=== PATIENT | female | born 1940 | race African-American/Black ===

== ENCOUNTER 2023-04-05 21:37 | Inpatient (IN) | payer MEDICARE, BC ==
[~2023-04-05] VITALS: Ht 162.6 cm; Wt 44.9 kg
[2023-04-05] MEDS ORDERED: ALBUTEROL (0.083%) 2.5MG/3ML NEB HHN STA (21:43)
[2023-04-05] MEDS ORDERED: IPRATROPIUM BROMIDE (0.02%) 0.5MG/2.5ML NEB HHN STA (21:43)
[2023-04-05] MEDS ORDERED: MAGNESIUM 2 G PREMIX 50 ML IV STA (21:43)
[2023-04-05] MEDS ORDERED: METHYLPREDNISOLONE SOD SUCC 125MG/2ML (ACT-O-VIAL) IV STA (21:43)
[2023-04-05 21:45] VITALS: RESP 28
[2023-04-05 22:05] VITALS: RESP 26
[2023-04-05] MEDS ORDERED: METHYLPREDNISOLONE SOD SUCC 125MG VIAL IV NR (22:15)
[2023-04-05 22:37] LABS: BASOPHILS % 1.1 % (0.0-2.0); DIFFERENTIAL COMMENT 0; EOSINOPHILS % 2.5 % (0.0-5.0); HEMATOCRIT. 40.1 % (36.0-48.0); HEMOGLOBIN. 13.7 g/dL (12.0-16.0); LYMPHOCYTES % 14.3 % (20.0-50.0); MEAN CORPUSCULAR HEMOGLOBIN 34.4 pg (28.0-32.0); MEAN CORPUSCULAR HGB CONC 34.2 g/dL (31.0-37.0); MEAN CORPUSCULAR VOLUME 100.6 fL (81.0-99.0); MEAN PLATELET VOLUME 7.3 fl (7.4-10.4); MONOCYTES % 9.3 % (2.0-8.0); NEUTROPHILS % 72.8 % (40.0-76.0); PLATELET 348 x1000/uL (130-400); RED BLOOD CELL COUNT 3.99 mill/uL (4.2-5.4); RED CELL DISTRIBUTION WIDTH 15.2 % (11.6-14.6); WHITE BLOOD COUNT 13.5 x1000/uL (4.5-11.0)
[2023-04-05 22:45] VITALS: RESP 19
[2023-04-05 22:46] LABS: CHLORIDE 91 mEq/L (98-107); INDEX HEMOLYSI 1 (1-3); INDEX ICTERIC 1 (1-4); INDEX LIPEMIC 1 (1-3); POTASSIUM 3.1 mEq/L (3.5-5.1); SODIUM 132 mEq/L (136-145)
[2023-04-05 22:48] LABS: INR 1.1; PROTHROMBIN TIME 11.5 sec (9.6-11.0)
[2023-04-05 22:57] LABS: ALANINE AMINOTRANSFERASE 13 IU/L (13-61); ALBUMIN 3.6 g/dL (3.4-5.0); ASPARTATE AMINOTRANSFERASE 18 IU/L (15-37); BILIRUBIN TOTAL 0.9 mg/dL (0.1-1.0); CALCIUM 8.8 mg/dL (8.5-10.1); CARBON DIOXIDE 29 mEq/L (21-32); CREATININE 0.5 mg/dL (0.6-1.3); GLUCOSE 135 mg/dL (70-105); PROTEIN TOTAL 7.3 g/dL (6.0-8.3); TROPONIN I HIGH SENSITIVITY 21 ng/L (<54); UREA NITROGEN BLOOD 9 mg/dL (7-21)
[2023-04-05] MEDS ORDERED: KCL 20MEQ/100ML PREMIX 100 ML IV ONE (23:00)
[2023-04-05 23:13] LABS: NT PRO B-TYPE NATRIURETIC PEP 185 pg/mL (5-125)
[2023-04-06] MEDS ORDERED: IPRATROPIUM/ALBUTEROL 0.5-3(2.5)MG/3ML NEB HHN PRN (10:30)
[2023-04-06 12:38] VITALS: BP 140/76; PULSE 89; RESP 22; TEMP 97.7
[2023-04-06 12:59] VITALS: BP 140/76; PULSE 89; RESP 22; TEMP 97.7
[2023-04-06] MEDS ORDERED: AMLO10TA80 PO (14:37)
[2023-04-06] MEDS ORDERED: CARV12.545 PO (14:37)
[2023-04-06] MEDS ORDERED: FLUT1BLS3 IH (14:37)
[2023-04-06] MEDS ORDERED: HYDR-4135 PO (14:37)
[2023-04-06] MEDS ORDERED: POTA-204 PO (14:37)
[2023-04-06] MEDS ORDERED: FOLI-43 PO ×2 (14:37→17:49)
[2023-04-06] MEDS ORDERED: THIA100T75 (14:37)
[2023-04-06] MEDS ORDERED: ATOR40TA70 PO (14:38)
[2023-04-06] MEDS ORDERED: VALS160T28 PO ×2 (14:38→17:50)
[2023-04-06] MEDS ORDERED: ASPI-1406 PO (14:39)
[2023-04-06] MEDS: IPRATROPIUM/ALBUTEROL 0.5-3(2.5)MG/3ML NEB HHN SCH ×2 (14:56→21:24)
[2023-04-06 15:05] VITALS: PULSE 91; RESP 20; O2SAT 96
[2023-04-06 16:00] VITALS: BP 112/63; PULSE 69; RESP 18; TEMP 97.7
[2023-04-06] MEDS ORDERED: FURO20TA4 PO (17:49)
[2023-04-06] MEDS ORDERED: THIA100T75 PO (17:51)
[2023-04-06] MEDS: THIAMINE HCL 100MG TABLET PO SCH (19:00)
[2023-04-06] MEDS: FOLIC ACID 1MG TABLET PO SCH (19:00)
[2023-04-06] MEDS: POTASSIUM CHLORIDE 20MEQ TABLET SR PO SCH (19:00)
[2023-04-06] MEDS: ASPIRIN 81MG EC TABLET PO SCH (19:01)
[2023-04-06 20:00] VITALS: BP 109/70; PULSE 90; RESP 19; TEMP 98.2
[2023-04-06] MEDS: BUDESONIDE 0.5MG/2ML NEB HHN SCH (21:24)
[2023-04-06 21:25] VITALS: PULSE 71; RESP 20
[2023-04-06] MEDS: ATORVASTATIN CALCIUM 40MG TABLET PO SCH (21:41)
[2023-04-06] MEDS: SODIUM CHLORIDE 0.9% 1,000 ML IV SCH (21:42)
[2023-04-07] VITALS (11 sets, daily range): BP systolic 102–126; BP diastolic 53–66; PULSE 60–88; RESP 16–20; TEMP 97.1–98.3; O2SAT 96
[2023-04-07] MEDS: IPRATROPIUM/ALBUTEROL 0.5-3(2.5)MG/3ML NEB HHN SCH ×4 (01:00→21:10)
[2023-04-07] MEDS ORDERED: ZOLPIDEM TARTRATE 5MG TABLET PO PRN (02:15)
[2023-04-07] MEDS: GUAIFENESIN/CODEINE 200-20MG/10ML UDC PO PRN ×2 (02:35→08:39)
[2023-04-07] MEDS: HYDRALAZINE HCL 25MG TABLET PO SCH ×2 (06:20→17:22)
[2023-04-07] MEDS: THIAMINE HCL 100MG TABLET PO SCH (08:39)
[2023-04-07] MEDS: ASPIRIN 81MG EC TABLET PO SCH (08:39)
[2023-04-07] MEDS: FOLIC ACID 1MG TABLET PO SCH (08:39)
[2023-04-07] MEDS: POTASSIUM CHLORIDE 20MEQ TABLET SR PO SCH ×2 (08:40→15:19)
[2023-04-07] MEDS: CARVEDILOL 12.5MG TABLET PO SCH (08:40)
[2023-04-07] MEDS: AMLODIPINE 10MG TABLET PO SCH (08:40)
[2023-04-07] MEDS: LOSARTAN POTASSIUM 50 MG TABLET PO SCH (08:40)
[2023-04-07] MEDS: BUDESONIDE 0.5MG/2ML NEB HHN SCH ×2 (08:59→21:10)
[2023-04-07] MEDS: SODIUM CHLORIDE 0.9% 1,000 ML IV SCH (13:17)
[2023-04-07] MEDS: PANTOT AC/MIN OIL/PET HY-PHL OINT (AQUAPHOR) TOP SCH ×2 (13:17→15:13)
[2023-04-07] MEDS: BENZONATATE 100MG CAPSULE PO SCH ×2 (15:19→23:11)
[2023-04-07] MEDS ORDERED: GUAIFENESIN 200MG/10ML SUGAR FREE UDC PO PRN (19:15)
[2023-04-07] MEDS: ATORVASTATIN CALCIUM 40MG TABLET PO SCH (20:29)
[2023-04-07] MEDS: ENOXAPARIN 30MG/0.3ML SYR SUBCUT SCH (20:29)
[2023-04-07 21:29] LABS: BASOPHILS % 0.6 % (0.0-2.0); DIFFERENTIAL COMMENT 0; EOSINOPHILS % 1.9 % (0.0-5.0); HEMATOCRIT. 37.9 % (36.0-48.0); HEMOGLOBIN. 12.3 g/dL (12.0-16.0); LYMPHOCYTES % 15.4 % (20.0-50.0); MEAN CORPUSCULAR HEMOGLOBIN 33.4 pg (28.0-32.0); MEAN CORPUSCULAR HGB CONC 32.6 g/dL (31.0-37.0); MEAN CORPUSCULAR VOLUME 102.4 fL (81.0-99.0); MEAN PLATELET VOLUME 7.6 fl (7.4-10.4); MONOCYTES % 12.6 % (2.0-8.0); NEUTROPHILS % 69.5 % (40.0-76.0); PLATELET 358 x1000/uL (130-400); RED CELL DISTRIBUTION WIDTH 14.9 % (11.6-14.6); WHITE BLOOD COUNT 9.3 x1000/uL (4.5-11.0)
[2023-04-07 21:43] LABS: CHLORIDE 96 mEq/L (98-107); INDEX HEMOLYSI 1 (1-3); INDEX ICTERIC 1 (1-4); INDEX LIPEMIC 1 (1-3); SODIUM 133 mEq/L (136-145)
[2023-04-07 21:48] LABS: CARBON DIOXIDE 28 mEq/L (21-32); CREATININE 0.5 mg/dL (0.6-1.3); GLUCOSE 91 mg/dL (70-105); UREA NITROGEN BLOOD 12 mg/dL (7-21)
[2023-04-08] VITALS (9 sets, daily range): BP systolic 104–145; BP diastolic 58–78; PULSE 63–90; RESP 17–20; TEMP 97.5–98.2; O2SAT 95
[2023-04-08] MEDS: IPRATROPIUM/ALBUTEROL 0.5-3(2.5)MG/3ML NEB HHN SCH ×4 (02:32→20:01)
[2023-04-08] MEDS: HYDRALAZINE HCL 25MG TABLET PO SCH ×2 (06:00→17:10)
[2023-04-08 07:20] LABS: BASOPHILS % 0.5 % (0.0-2.0); EOSINOPHILS % 4.5 % (0.0-5.0); HEMATOCRIT. 33.2 % (36.0-48.0); HEMOGLOBIN. 11.5 g/dL (12.0-16.0); LYMPHOCYTES % 20.5 % (20.0-50.0); MEAN CORPUSCULAR HEMOGLOBIN 34.8 pg (28.0-32.0); MEAN CORPUSCULAR HGB CONC 34.8 g/dL (31.0-37.0); MEAN CORPUSCULAR VOLUME 99.9 fL (81.0-99.0); NEUTROPHILS % 60.5 % (40.0-76.0); PLATELET 328 x1000/uL (130-400); RED BLOOD CELL COUNT 3.32 mill/uL (4.2-5.4); RED CELL DISTRIBUTION WIDTH 14.8 % (11.6-14.6); WHITE BLOOD COUNT 6.7 x1000/uL (4.5-11.0)
[2023-04-08 08:12] LABS: CALCIUM 7.5 mg/dL (8.5-10.1); CARBON DIOXIDE 24 mEq/L (21-32); CHLORIDE 98 mEq/L (98-107); GLUCOSE 81 mg/dL (70-105); INDEX HEMOLYSI 1 (1-3); INDEX ICTERIC 1 (1-4); INDEX LIPEMIC 1 (1-3); POTASSIUM 3.8 mEq/L (3.5-5.1); SODIUM 131 mEq/L (136-145); UREA NITROGEN BLOOD 9 mg/dL (7-21)
[2023-04-08 08:15] LABS: CREATININE 0.4 mg/dL (0.6-1.3)
[2023-04-08] MEDS: AMLODIPINE 10MG TABLET PO SCH (08:33)
[2023-04-08] MEDS: POTASSIUM CHLORIDE 20MEQ TABLET SR PO SCH ×2 (08:33→16:54)
[2023-04-08] MEDS: LOSARTAN POTASSIUM 50 MG TABLET PO SCH (08:33)
[2023-04-08] MEDS: ASPIRIN 81MG EC TABLET PO SCH (08:33)
[2023-04-08] MEDS: THIAMINE HCL 100MG TABLET PO SCH (08:33)
[2023-04-08] MEDS: BENZONATATE 100MG CAPSULE PO SCH ×2 (08:33→16:54)
[2023-04-08] MEDS: FOLIC ACID 1MG TABLET PO SCH (08:34)
[2023-04-08] MEDS: PANTOT AC/MIN OIL/PET HY-PHL OINT (AQUAPHOR) TOP SCH ×3 (08:34→16:55)
[2023-04-08] MEDS: CARVEDILOL 12.5MG TABLET PO SCH (08:34)
[2023-04-08] MEDS: SODIUM CHLORIDE 0.9% 1,000 ML IV SCH (08:35)
[2023-04-08] MEDS: BUDESONIDE 0.5MG/2ML NEB HHN SCH ×2 (10:02→20:01)
[2023-04-08] MEDS: ATORVASTATIN CALCIUM 40MG TABLET PO SCH (21:00)
[2023-04-08] MEDS: ENOXAPARIN 30MG/0.3ML SYR SUBCUT SCH (21:00)
[2023-04-09] VITALS (8 sets, daily range): BP systolic 110–141; BP diastolic 55–74; PULSE 68–88; RESP 17–24; TEMP 96.7–98.1; O2SAT 99
[2023-04-09] MEDS: IPRATROPIUM/ALBUTEROL 0.5-3(2.5)MG/3ML NEB HHN SCH ×3 (02:03→21:10)
[2023-04-09] MEDS: SODIUM CHLORIDE 0.9% 1,000 ML IV SCH (06:00)
[2023-04-09] MEDS: HYDRALAZINE HCL 25MG TABLET PO SCH ×2 (06:00→18:15)
[2023-04-09] MEDS: FOLIC ACID 1MG TABLET PO SCH (08:26)
[2023-04-09] MEDS: AMLODIPINE 10MG TABLET PO SCH (08:26)
[2023-04-09] MEDS: POTASSIUM CHLORIDE 20MEQ TABLET SR PO SCH ×2 (08:26→16:50)
[2023-04-09] MEDS: BENZONATATE 100MG CAPSULE PO SCH ×3 (08:26→16:50)
[2023-04-09] MEDS: THIAMINE HCL 100MG TABLET PO SCH (08:26)
[2023-04-09] MEDS: CARVEDILOL 12.5MG TABLET PO SCH (08:27)
[2023-04-09] MEDS: LOSARTAN POTASSIUM 50 MG TABLET PO SCH (08:27)
[2023-04-09] MEDS: ASPIRIN 81MG EC TABLET PO SCH (08:27)
[2023-04-09] MEDS: PANTOT AC/MIN OIL/PET HY-PHL OINT (AQUAPHOR) TOP SCH ×3 (08:28→16:56)
[2023-04-09 13:00] LABS: VITAMIN B12 SERUM 425 pg/mL (211-911)
[2023-04-09 13:54] LABS: FOLIC ACID (FOLATE) SERUM > 20.00 ng/mL (>5.38)
[2023-04-09] MEDS: BUDESONIDE 0.5MG/2ML NEB HHN SCH (14:39)
[2023-04-09] MEDS ORDERED: NALOXONE HCL 0.4MG/ML VIAL IV PRN (20:30)
[2023-04-09] MEDS: ENOXAPARIN 30MG/0.3ML SYR SUBCUT SCH (20:45)
[2023-04-09] MEDS: ATORVASTATIN CALCIUM 40MG TABLET PO SCH (20:46)
[2023-04-09] MEDS: HYDROCODONE/ACETAMINOPHEN 5/325MG TABLET PO PRN (20:47)
[2023-04-10] VITALS (8 sets, daily range): BP systolic 101–158; BP diastolic 61–75; PULSE 63–77; RESP 18–20; TEMP 97–97.3; O2SAT 99
[2023-04-10] MEDS: BENZONATATE 100MG CAPSULE PO SCH ×3 (00:39→17:51)
[2023-04-10] MEDS: HYDROCODONE/ACETAMINOPHEN 5/325MG TABLET PO PRN ×2 (00:40→05:48)
[2023-04-10] MEDS: IPRATROPIUM/ALBUTEROL 0.5-3(2.5)MG/3ML NEB HHN SCH ×3 (01:34→16:30)
[2023-04-10] MEDS: SODIUM CHLORIDE 0.9% 1,000 ML IV SCH (02:00)
[2023-04-10] MEDS: HYDRALAZINE HCL 25MG TABLET PO SCH ×2 (05:48→17:48)
[2023-04-10] MEDS: AMLODIPINE 10MG TABLET PO SCH (08:28)
[2023-04-10] MEDS: LOSARTAN POTASSIUM 50 MG TABLET PO SCH (08:28)
[2023-04-10] MEDS: POTASSIUM CHLORIDE 20MEQ TABLET SR PO SCH ×2 (08:28→17:51)
[2023-04-10] MEDS: ASPIRIN 81MG EC TABLET PO SCH (08:28)
[2023-04-10] MEDS: THIAMINE HCL 100MG TABLET PO SCH (08:28)
[2023-04-10] MEDS: PANTOT AC/MIN OIL/PET HY-PHL OINT (AQUAPHOR) TOP SCH ×3 (08:29→17:00)
[2023-04-10] MEDS: CARVEDILOL 12.5MG TABLET PO SCH (08:29)
[2023-04-10] MEDS: FOLIC ACID 1MG TABLET PO SCH (08:29)
[2023-04-10] MEDS: ALPRAZOLAM 0.25 MG TABLET PO PRN ×2 (09:39→14:44)
[2023-04-10] MEDS ORDERED: CYANOCOBALAMIN 1000MCG/ML VIAL IM SCH (12:30)
== END 2023-04-10 20:12 | DRG 189 ==
LOC: ER 21:37 → EDBD 23:40 → MICUSO 23:40 → 8WST 04-06 12:25
PROVIDERS: ADMIT Internal Medicine; ATTEND Internal Medicine
PROC: 5A09357 Assistance with Respiratory Ventilation, Less than 24 Consecutive Hours, Continuous Positive Airway Pressure (ICD-10-PCS; principal; 2023-04-05)
DX: J96.01 Acute respiratory failure with hypoxia (principal); J44.1 Chronic obstructive pulmonary disease with (acute) exacerbation; E87.1 Hypo-osmolality and hyponatremia; F17.210 Nicotine dependence, cigarettes, uncomplicated; I10 Essential (primary) hypertension; D72.829 Elevated white blood cell count, unspecified; L85.9 Epidermal thickening, unspecified; F10.20 Alcohol dependence, uncomplicated; L40.9 Psoriasis, unspecified; M79.671 Pain in right foot; M79.672 Pain in left foot; L84 Corns and callosities; G62.9 Polyneuropathy, unspecified; R26.9 Unspecified abnormalities of gait and mobility; E87.6 Hypokalemia; D64.9 Anemia, unspecified; R10.9 Unspecified abdominal pain; K57.30 Diverticulosis of large intestine without perforation or abscess without bleeding; Z99.81 Dependence on supplemental oxygen; Z91.199 Patient's noncompliance with other medical treatment and regimen due to unspecified reason
CPT/HCPCS: 36415; 71045; 74176; 80048; 80053; 82306; 82607; 82746; 83880; 84443; 84484; 85025; 94640; 94644; 94660; 94664; 97116; 97162; 97166; 97530; 99291; C1893; J1650; J2930; J3420; J3475; J3480; J7030; J7626

== ENCOUNTER 2023-04-10 20:10 | Inpatient (IN) | payer MEDICARE, BC ==
[~2023-04-10] VITALS: Ht 162.6 cm; Wt 44.9 kg
[2023-04-10 20:10] VITALS: BP 106/53; PULSE 72; RESP 18; TEMP 97.6
[~2023-04-10 20:10] MED LIST: ASPI-1406 PO; ATOR40TA70 PO; CARV12.545 PO; FLUT1BLS3 IH; FOLI-43 PO; FURO20TA4 PO; HYDR-4135 PO; POTA-204 PO; THIA100T75 PO; VALS160T28 PO
[2023-04-11] MEDS ORDERED: HYDROCODONE/ACETAMINOPHEN 5/325MG TABLET PO PRN
[2023-04-11] MEDS ORDERED: NALOXONE HCL 0.4 MG/ML 1ML VIAL IV PRN
[2023-04-11 02:11] VITALS: PULSE 83; RESP 16
[2023-04-11] MEDS: IPRATROPIUM/ALBUTEROL 0.5-3(2.5)MG/3ML NEB HHN SCH ×4 (02:11→20:00)
[2023-04-11 06:12] LABS: HEMATOCRIT. 35.8 % (36.0-48.0); HEMOGLOBIN. 12.1 g/dL (12.0-16.0); MEAN CORPUSCULAR HEMOGLOBIN 34.2 pg (28.0-32.0); MEAN CORPUSCULAR HGB CONC 33.9 g/dL (31.0-37.0); RED BLOOD CELL COUNT 3.54 mill/uL (4.2-5.4); RED CELL DISTRIBUTION WIDTH 14.9 % (11.6-14.6)
[2023-04-11 06:13] LABS: CHLORIDE 95 mEq/L (98-107); INDEX HEMOLYSI 2 (1-3); INDEX ICTERIC 1 (1-4); INDEX LIPEMIC 1 (1-3); POTASSIUM 4.6 mEq/L (3.5-5.1); SODIUM 125 mEq/L (136-145)
[2023-04-11 06:21] LABS: ALANINE AMINOTRANSFERASE 16 IU/L (13-61); ASPARTATE AMINOTRANSFERASE 21 IU/L (15-37); BILIRUBIN TOTAL 0.3 mg/dL (0.1-1.0); CALCIUM 8.8 mg/dL (8.5-10.1); CARBON DIOXIDE 25 mEq/L (21-32); CREATININE 0.5 mg/dL (0.6-1.3); GLUCOSE 95 mg/dL (70-105); PREALBUMIN 22.9 mg/dL (20.0-40.0); UREA NITROGEN BLOOD 13 mg/dL (7-21)
[2023-04-11 06:30] LABS: DIFFERENTIAL COMMENT 1
[2023-04-11] MEDS: BENZONATATE 100MG CAPSULE PO SCH ×3 (07:08→20:28)
[2023-04-11 08:00] VITALS: BP 119/64; PULSE 72; RESP 18; TEMP 97
[2023-04-11] MEDS: ENOXAPARIN 30MG/0.3ML SYR SUBCUT SCH (08:36)
[2023-04-11] MEDS: AMLODIPINE 10MG TABLET PO SCH (08:37)
[2023-04-11] MEDS: CYANOCOBALAMIN 1000MCG/ML VIAL IM SCH (08:37)
[2023-04-11] MEDS: LOSARTAN POTASSIUM 50 MG TABLET PO SCH (08:38)
[2023-04-11] MEDS: POTASSIUM CHLORIDE 20MEQ TABLET SR PO SCH ×2 (08:38→17:40)
[2023-04-11] MEDS: THIAMINE HCL 100MG TABLET PO SCH (08:38)
[2023-04-11] MEDS: HYDRALAZINE HCL 25MG TABLET PO SCH ×2 (08:39→21:00)
[2023-04-11] MEDS: CARVEDILOL 12.5MG TABLET PO SCH (08:39)
[2023-04-11] MEDS: ASPIRIN 81MG EC TABLET PO SCH (08:39)
[2023-04-11] MEDS: FOLIC ACID 1MG TABLET PO SCH (08:39)
[2023-04-11] MEDS ORDERED: PANTOT AC/MIN OIL/PET HY-PHL OINT (AQUAPHOR) TOP SCH (09:00)
[2023-04-11] MEDS: PANTOT AC/MIN OIL/PET HY-PHL OINT (AQUAPHOR) TOP SCH (09:00)
[2023-04-11 13:14] LABS: PLATELET 300 x1000/uL (130-400)
[2023-04-11 13:18] LABS: PLATELET ESTIMATE NORMAL
[2023-04-11 14:23] VITALS: PULSE 71; RESP 16; O2SAT 100
[2023-04-11] MEDS: ERGOCALCIFEROL 50000UNITS CAPSULE PO SCH (14:23)
[2023-04-11 19:31] LABS: CLARITY URINE CLEAR (CLEAR); COLOR URINE YELLOW (YELLOW); GLUCOSE URINE NEGATIVE (NEGATIVE); KETONES URINE NEGATIVE (NEGATIVE); LEUKOCYTE ESTERASE URINE NEGATIVE (NEGATIVE); NITRITE URINE NEGATIVE (NEGATIVE); OCCULT BLOOD URINE NEGATIVE (NEGATIVE); PH URINE 6.5 (4.5-8.0); PROTEIN URINE NEGATIVE (NEGATIVE); SPECIFIC GRAVITY URINE 1.013 (1.005-1.030)
[2023-04-11] MEDS: BUDESONIDE 0.5MG/2ML NEB HHN SCH (19:57)
[2023-04-11 20:00] VITALS: BP 114/61; PULSE 77; PULSE 78; RESP 15; RESP 16; TEMP 97.5; O2SAT 99
[2023-04-11] MEDS: SULFAMETHOXAZOLE/TRIMETHOPRIM 800/160MG TABLET PO SCH (20:28)
[2023-04-11] MEDS: ATORVASTATIN CALCIUM 40MG TABLET PO SCH (20:28)
[2023-04-12] MEDS: BENZONATATE 100MG CAPSULE PO SCH ×3 (06:05→21:59)
[2023-04-12 08:00] VITALS: BP 145/75; PULSE 71; RESP 18; TEMP 97.4
[2023-04-12] MEDS: IPRATROPIUM/ALBUTEROL 0.5-3(2.5)MG/3ML NEB HHN SCH ×3 (08:45→20:18)
[2023-04-12] MEDS: PANTOT AC/MIN OIL/PET HY-PHL OINT (AQUAPHOR) TOP SCH (09:00)
[2023-04-12] MEDS: FOLIC ACID 1MG TABLET PO SCH (09:42)
[2023-04-12] MEDS: ASPIRIN 81MG EC TABLET PO SCH (09:42)
[2023-04-12] MEDS: POTASSIUM CHLORIDE 20MEQ TABLET SR PO SCH ×2 (09:42→17:18)
[2023-04-12] MEDS: SULFAMETHOXAZOLE/TRIMETHOPRIM 800/160MG TABLET PO SCH (09:43)
[2023-04-12] MEDS: CYANOCOBALAMIN 1000MCG/ML VIAL IM SCH (09:43)
[2023-04-12] MEDS: THIAMINE HCL 100MG TABLET PO SCH (09:43)
[2023-04-12] MEDS: LOSARTAN POTASSIUM 50 MG TABLET PO SCH (09:43)
[2023-04-12] MEDS: ENOXAPARIN 30MG/0.3ML SYR SUBCUT SCH (09:44)
[2023-04-12] MEDS: CARVEDILOL 12.5MG TABLET PO SCH (09:44)
[2023-04-12] MEDS: HYDRALAZINE HCL 25MG TABLET PO SCH ×2 (09:44→22:00)
[2023-04-12] MEDS: AMLODIPINE 10MG TABLET PO SCH (11:22)
[2023-04-12 14:38] VITALS: PULSE 62; RESP 16; O2SAT 100
[2023-04-12] MEDS: BUDESONIDE 0.5MG/2ML NEB HHN SCH ×2 (14:38→20:18)
[2023-04-12] MEDS: ALPRAZOLAM 0.25 MG TABLET PO PRN (17:19)
[2023-04-12] MEDS: NICOTINE 7MG PATCH TD SCH (17:30)
[2023-04-12 18:19] LABS: THYROID STIMULATING HORMONE 0.62 uIU/mL (0.36-3.74)
[2023-04-12 20:00] VITALS: BP 97/52; PULSE 66; RESP 20; TEMP 97.9
[2023-04-12 20:30] VITALS: PULSE 62; RESP 18; O2SAT 99
[2023-04-12] MEDS: ATORVASTATIN CALCIUM 40MG TABLET PO SCH (21:59)
[2023-04-13] MEDS: IPRATROPIUM/ALBUTEROL 0.5-3(2.5)MG/3ML NEB HHN SCH ×4 (01:18→20:41)
[2023-04-13 01:20] VITALS: PULSE 74; RESP 18; O2SAT 99
[2023-04-13] MEDS: BENZONATATE 100MG CAPSULE PO SCH ×3 (07:25→21:36)
[2023-04-13 07:31] LABS: HEMATOCRIT. 33.5 % (36.0-48.0); HEMOGLOBIN. 11.6 g/dL (12.0-16.0); MEAN CORPUSCULAR HEMOGLOBIN 34.5 pg (28.0-32.0); MEAN CORPUSCULAR HGB CONC 34.5 g/dL (31.0-37.0); MEAN PLATELET VOLUME 7.3 fl (7.4-10.4); PLATELET 362 x1000/uL (130-400); RED BLOOD CELL COUNT 3.35 mill/uL (4.2-5.4); RED CELL DISTRIBUTION WIDTH 15.1 % (11.6-14.6); WHITE BLOOD COUNT 6.7 x1000/uL (4.5-11.0)
[2023-04-13 07:34] LABS: CHLORIDE 94 mEq/L (98-107); INDEX HEMOLYSI 1 (1-3); INDEX ICTERIC 1 (1-4); INDEX LIPEMIC 1 (1-3); POTASSIUM 4.6 mEq/L (3.5-5.1); SODIUM 124 mEq/L (136-145)
[2023-04-13 07:44] LABS: CALCIUM 8.6 mg/dL (8.5-10.1); CARBON DIOXIDE 25 mEq/L (21-32); CREATININE 0.6 mg/dL (0.6-1.3); GLUCOSE 95 mg/dL (70-105); UREA NITROGEN BLOOD 11 mg/dL (7-21)
[2023-04-13 07:45] LABS: DIFFERENTIAL COMMENT 1
[2023-04-13 08:00] VITALS: BP 103/46; PULSE 78; RESP 16; TEMP 97.1
[2023-04-13 09:00] VITALS: PULSE 77; RESP 20; O2SAT 99
[2023-04-13] MEDS: AMLODIPINE 10MG TABLET PO SCH (09:00)
[2023-04-13] MEDS: PANTOT AC/MIN OIL/PET HY-PHL OINT (AQUAPHOR) TOP SCH (09:00)
[2023-04-13] MEDS: CARVEDILOL 12.5MG TABLET PO SCH (09:00)
[2023-04-13] MEDS: BUDESONIDE 0.5MG/2ML NEB HHN SCH ×2 (09:00→20:41)
[2023-04-13] MEDS: LOSARTAN POTASSIUM 50 MG TABLET PO SCH (09:00)
[2023-04-13] MEDS: HYDRALAZINE HCL 25MG TABLET PO SCH ×2 (09:00→21:36)
[2023-04-13] MEDS: ASPIRIN 81MG EC TABLET PO SCH (09:43)
[2023-04-13] MEDS: CYANOCOBALAMIN 1000MCG/ML VIAL IM SCH (09:43)
[2023-04-13] MEDS: FOLIC ACID 1MG TABLET PO SCH (09:43)
[2023-04-13] MEDS: THIAMINE HCL 100MG TABLET PO SCH (09:43)
[2023-04-13] MEDS: ENOXAPARIN 30MG/0.3ML SYR SUBCUT SCH (09:44)
[2023-04-13] MEDS: POTASSIUM CHLORIDE 20MEQ TABLET SR PO SCH (09:44)
[2023-04-13] MEDS: SODIUM CHLORIDE 0.9% 1,000 ML IV SCH (09:45)
[2023-04-13] MEDS: NICOTINE 7MG PATCH TD SCH (09:59)
[2023-04-13 13:13] LABS: PLATELET ESTIMATE NORMAL
[2023-04-13] MEDS: ALPRAZOLAM 0.25 MG TABLET PO PRN (14:35)
[2023-04-13 16:30] VITALS: PULSE 80; RESP 20
[2023-04-13 19:51] VITALS: BP 135/75; PULSE 84; RESP 17; TEMP 96.9
[2023-04-13 20:41] VITALS: PULSE 77; RESP 18
[2023-04-13] MEDS: ATORVASTATIN CALCIUM 40MG TABLET PO SCH (21:36)
[2023-04-14] MEDS: IPRATROPIUM/ALBUTEROL 0.5-3(2.5)MG/3ML NEB HHN SCH ×4 (01:45→20:28)
[2023-04-14] MEDS: BENZONATATE 100MG CAPSULE PO SCH ×3 (06:20→22:20)
[2023-04-14 06:45] LABS: HEMATOCRIT. 33.5 % (36.0-48.0); HEMOGLOBIN. 11.7 g/dL (12.0-16.0); MEAN CORPUSCULAR HEMOGLOBIN 34.9 pg (28.0-32.0); MEAN CORPUSCULAR HGB CONC 35.1 g/dL (31.0-37.0); MEAN CORPUSCULAR VOLUME 99.5 fL (81.0-99.0); MEAN PLATELET VOLUME 8.1 fl (7.4-10.4); PLATELET 397 x1000/uL (130-400); RED BLOOD CELL COUNT 3.36 mill/uL (4.2-5.4); RED CELL DISTRIBUTION WIDTH 15.1 % (11.6-14.6); WHITE BLOOD COUNT 5.9 x1000/uL (4.5-11.0)
[2023-04-14 06:54] LABS: DIFFERENTIAL COMMENT 1
[2023-04-14] MEDS: BUDESONIDE 0.5MG/2ML NEB HHN SCH ×3 (07:49→20:28)
[2023-04-14 08:00] VITALS: BP 143/72; PULSE 87; RESP 20; TEMP 96.8
[2023-04-14 08:41] LABS: CALCIUM 8.6 mg/dL (8.5-10.1); CHLORIDE 95 mEq/L (98-107); INDEX HEMOLYSI 4 (1-3); INDEX ICTERIC 1 (1-4); INDEX LIPEMIC 1 (1-3); SODIUM 123 mEq/L (136-145); UREA NITROGEN BLOOD 14 mg/dL (7-21)
[2023-04-14 08:44] LABS: POTASSIUM 6.1 mEq/L (3.5-5.1)
[2023-04-14 08:45] LABS: CARBON DIOXIDE 24 mEq/L (21-32); CREATININE 0.7 mg/dL (0.6-1.3); GLUCOSE 92 mg/dL (70-105)
[2023-04-14] MEDS ORDERED: POTASSIUM CHLORIDE 20MEQ TABLET SR PO SCH (09:00)
[2023-04-14] MEDS: PANTOT AC/MIN OIL/PET HY-PHL OINT (AQUAPHOR) TOP SCH (09:00)
[2023-04-14] MEDS: FOLIC ACID 1MG TABLET PO SCH (09:34)
[2023-04-14] MEDS: ASPIRIN 81MG EC TABLET PO SCH (09:35)
[2023-04-14] MEDS: THIAMINE HCL 100MG TABLET PO SCH (09:35)
[2023-04-14] MEDS: AMLODIPINE 10MG TABLET PO SCH (09:36)
[2023-04-14] MEDS: HYDRALAZINE HCL 25MG TABLET PO SCH ×2 (09:36→22:18)
[2023-04-14] MEDS: NICOTINE 7MG PATCH TD SCH (09:37)
[2023-04-14] MEDS: CYANOCOBALAMIN 1000MCG/ML VIAL IM SCH (09:37)
[2023-04-14] MEDS: CARVEDILOL 12.5MG TABLET PO SCH (09:37)
[2023-04-14] MEDS: ENOXAPARIN 30MG/0.3ML SYR SUBCUT SCH (09:38)
[2023-04-14] MEDS: LOSARTAN POTASSIUM 50 MG TABLET PO SCH (09:38)
[2023-04-14] MEDS: DEMECLOCYCLINE HCL 300MG TABLET PO SCH ×2 (11:00→18:04)
[2023-04-14 15:07] VITALS: PULSE 72; RESP 16; O2SAT 98
[2023-04-14 20:00] VITALS: BP 136/56; PULSE 75; RESP 17; TEMP 97.2
[2023-04-14 20:30] VITALS: PULSE 92; RESP 16
[2023-04-14] MEDS: ATORVASTATIN CALCIUM 40MG TABLET PO SCH (22:19)
[2023-04-14] MEDS: ZOLPIDEM TARTRATE 5MG TABLET PO PRN (22:20)
[2023-04-15] MEDS: IPRATROPIUM/ALBUTEROL 0.5-3(2.5)MG/3ML NEB HHN SCH ×4 (02:07→21:39)
[2023-04-15 02:08] VITALS: PULSE 88; RESP 16
[2023-04-15] MEDS ORDERED: SODIUM POLYSTYRENE SULFONATE 15 G/60 ML BOT PO NR ×2 (05:30→06:00)
[2023-04-15] MEDS: BENZONATATE 100MG CAPSULE PO SCH ×3 (06:03→22:04)
[2023-04-15 07:18] LABS: CHLORIDE 93 mEq/L (98-107); INDEX HEMOLYSI 1 (1-3); INDEX ICTERIC 1 (1-4); INDEX LIPEMIC 1 (1-3); POTASSIUM 4.6 mEq/L (3.5-5.1); SODIUM 124 mEq/L (136-145)
[2023-04-15 07:25] LABS: CALCIUM 8.5 mg/dL (8.5-10.1); CARBON DIOXIDE 25 mEq/L (21-32); CREATININE 0.6 mg/dL (0.6-1.3); GLUCOSE 97 mg/dL (70-105); UREA NITROGEN BLOOD 16 mg/dL (7-21)
[2023-04-15 07:54] VITALS: PULSE 88; RESP 20; O2SAT 95
[2023-04-15] MEDS: BUDESONIDE 0.5MG/2ML NEB HHN SCH ×2 (07:54→21:39)
[2023-04-15 08:00] VITALS: BP 128/68; PULSE 79; RESP 18; TEMP 97.9
[2023-04-15 08:17] LABS: PLATELET ESTIMATE NORMAL
[2023-04-15] MEDS: PANTOT AC/MIN OIL/PET HY-PHL OINT (AQUAPHOR) TOP SCH (09:00)
[2023-04-15] MEDS: SODIUM CHLORIDE 0.9% 1,000 ML IV SCH (09:45)
[2023-04-15] MEDS: NICOTINE 7MG PATCH TD SCH (09:58)
[2023-04-15] MEDS: THIAMINE HCL 100MG TABLET PO SCH (09:59)
[2023-04-15] MEDS: ENOXAPARIN 30MG/0.3ML SYR SUBCUT SCH (09:59)
[2023-04-15] MEDS: CARVEDILOL 12.5MG TABLET PO SCH (10:00)
[2023-04-15] MEDS: DEMECLOCYCLINE HCL 300MG TABLET PO SCH ×2 (10:00→16:56)
[2023-04-15] MEDS: ASPIRIN 81MG EC TABLET PO SCH (10:00)
[2023-04-15] MEDS: FOLIC ACID 1MG TABLET PO SCH (10:00)
[2023-04-15] MEDS: AMLODIPINE 10MG TABLET PO SCH (10:01)
[2023-04-15] MEDS: HYDRALAZINE HCL 25MG TABLET PO SCH ×2 (10:01→21:50)
[2023-04-15] MEDS: GUAIFENESIN 200MG/10ML SUGAR FREE UDC PO PRN ×2 (15:16→22:06)
[2023-04-15] MEDS ORDERED: DIPHENOXYLATE/ATROPINE 2.5/0.025MG TABLET PO PRN (15:30)
[2023-04-15 15:42] VITALS: PULSE 85; RESP 18; O2SAT 95
[2023-04-15 20:00] VITALS: BP 103/44; PULSE 77; RESP 20; TEMP 99.3
[2023-04-15 21:38] VITALS: PULSE 81; RESP 18
[2023-04-15] MEDS: ATORVASTATIN CALCIUM 40MG TABLET PO SCH (22:04)
[2023-04-15] MEDS: ZOLPIDEM TARTRATE 5MG TABLET PO PRN (22:06)
[2023-04-16] MEDS: IPRATROPIUM/ALBUTEROL 0.5-3(2.5)MG/3ML NEB HHN SCH (01:56)
[2023-04-16 06:09] LABS: HEMATOCRIT. 32.6 % (36.0-48.0); HEMOGLOBIN. 11.4 g/dL (12.0-16.0); MEAN CORPUSCULAR HEMOGLOBIN 34.6 pg (28.0-32.0); MEAN CORPUSCULAR HGB CONC 34.9 g/dL (31.0-37.0); MEAN CORPUSCULAR VOLUME 99.1 fL (81.0-99.0); MEAN PLATELET VOLUME 7.4 fl (7.4-10.4); PLATELET 395 x1000/uL (130-400); RED BLOOD CELL COUNT 3.29 mill/uL (4.2-5.4); RED CELL DISTRIBUTION WIDTH 14.4 % (11.6-14.6); WHITE BLOOD COUNT 7.2 x1000/uL (4.5-11.0)
[2023-04-16 06:18] LABS: CHLORIDE 96 mEq/L (98-107); INDEX HEMOLYSI 1 (1-3); INDEX ICTERIC 1 (1-4); INDEX LIPEMIC 1 (1-3); POTASSIUM 3.5 mEq/L (3.5-5.1); SODIUM 127 mEq/L (136-145)
[2023-04-16 06:24] LABS: CALCIUM 8.1 mg/dL (8.5-10.1); CARBON DIOXIDE 26 mEq/L (21-32); CREATININE 0.5 mg/dL (0.6-1.3); GLUCOSE 95 mg/dL (70-105); UREA NITROGEN BLOOD 12 mg/dL (7-21)
[2023-04-16] MEDS: BENZONATATE 100MG CAPSULE PO SCH ×3 (06:58→21:52)
[2023-04-16 07:37] LABS: DIFFERENTIAL COMMENT 1
[2023-04-16 08:00] VITALS: BP 108/55; PULSE 67; RESP 18; TEMP 97.1
[2023-04-16] MEDS: BUDESONIDE 0.5MG/2ML NEB HHN SCH ×2 (08:34→23:20)
[2023-04-16 08:35] VITALS: PULSE 79; RESP 18; O2SAT 99
[2023-04-16] MEDS: IPRATROPIUM/ALBUTEROL 0.5-3(2.5)MG/3ML NEB HHN PRN ×2 (08:35→23:20)
[2023-04-16] MEDS: THIAMINE HCL 100MG TABLET PO SCH (08:55)
[2023-04-16] MEDS: ASPIRIN 81MG EC TABLET PO SCH (08:55)
[2023-04-16] MEDS: DEMECLOCYCLINE HCL 300MG TABLET PO SCH ×2 (08:56→17:31)
[2023-04-16] MEDS: FOLIC ACID 1MG TABLET PO SCH (08:56)
[2023-04-16] MEDS: ENOXAPARIN 30MG/0.3ML SYR SUBCUT SCH (08:57)
[2023-04-16] MEDS: NICOTINE 7MG PATCH TD SCH (08:57)
[2023-04-16] MEDS: HYDRALAZINE HCL 25MG TABLET PO SCH ×2 (09:00→21:53)
[2023-04-16] MEDS: CARVEDILOL 12.5MG TABLET PO SCH (09:00)
[2023-04-16] MEDS: PANTOT AC/MIN OIL/PET HY-PHL OINT (AQUAPHOR) TOP SCH (09:00)
[2023-04-16] MEDS: AMLODIPINE 10MG TABLET PO SCH (09:00)
[2023-04-16] MEDS: SODIUM CHLORIDE 0.9% 1,000 ML IV SCH (09:45)
[2023-04-16 10:13] LABS: PLATELET ESTIMATE NORMAL
[2023-04-16] MEDS: GUAIFENESIN 200MG/10ML SUGAR FREE UDC PO PRN ×2 (17:33→21:55)
[2023-04-16 20:00] VITALS: BP 148/73; PULSE 80; RESP 20; TEMP 97.9
[2023-04-16] MEDS: ATORVASTATIN CALCIUM 40MG TABLET PO SCH (21:52)
[2023-04-16] MEDS: ZOLPIDEM TARTRATE 5MG TABLET PO PRN (21:55)
[2023-04-16 23:20] VITALS: PULSE 84; RESP 18
[2023-04-17] MEDS: BENZONATATE 100MG CAPSULE PO SCH ×3 (06:00→21:51)
[2023-04-17 07:31] LABS: CHLORIDE 95 mEq/L (98-107); INDEX HEMOLYSI 1 (1-3); INDEX ICTERIC 1 (1-4); INDEX LIPEMIC 1 (1-3); POTASSIUM 3.4 mEq/L (3.5-5.1); SODIUM 127 mEq/L (136-145)
[2023-04-17 07:37] LABS: CALCIUM 8.4 mg/dL (8.5-10.1); CARBON DIOXIDE 26 mEq/L (21-32); CREATININE 0.5 mg/dL (0.6-1.3); GLUCOSE 91 mg/dL (70-105); UREA NITROGEN BLOOD 11 mg/dL (7-21)
[2023-04-17 08:00] VITALS: BP 105/54; PULSE 71; RESP 19; TEMP 97.5
[2023-04-17 08:45] VITALS: PULSE 87; RESP 18
[2023-04-17] MEDS: IPRATROPIUM/ALBUTEROL 0.5-3(2.5)MG/3ML NEB HHN PRN (08:45)
[2023-04-17] MEDS: BUDESONIDE 0.5MG/2ML NEB HHN SCH ×2 (08:45→21:10)
[2023-04-17] MEDS: PANTOT AC/MIN OIL/PET HY-PHL OINT (AQUAPHOR) TOP SCH (09:00)
[2023-04-17] MEDS: THIAMINE HCL 100MG TABLET PO SCH (09:39)
[2023-04-17] MEDS: FOLIC ACID 1MG TABLET PO SCH (09:39)
[2023-04-17] MEDS: DEMECLOCYCLINE HCL 300MG TABLET PO SCH ×2 (09:39→18:00)
[2023-04-17] MEDS: NICOTINE 7MG PATCH TD SCH (09:39)
[2023-04-17] MEDS: ASPIRIN 81MG EC TABLET PO SCH (09:39)
[2023-04-17] MEDS: GUAIFENESIN 200MG/10ML SUGAR FREE UDC PO PRN (09:39)
[2023-04-17] MEDS: AMLODIPINE 10MG TABLET PO SCH (09:40)
[2023-04-17] MEDS: HYDRALAZINE HCL 25MG TABLET PO SCH ×2 (09:41→21:00)
[2023-04-17] MEDS: CARVEDILOL 12.5MG TABLET PO SCH (09:41)
[2023-04-17] MEDS: ENOXAPARIN 30MG/0.3ML SYR SUBCUT SCH (09:42)
[2023-04-17] MEDS ORDERED: POTASSIUM CHLORIDE 20MEQ TABLET SR PO NR (15:00)
[2023-04-17 20:00] VITALS: BP 118/69; PULSE 78; RESP 20; TEMP 97.7
[2023-04-17] MEDS ORDERED: ALPRAZOLAM 0.25 MG TABLET PO PRN (20:45)
[2023-04-17] MEDS ORDERED: HYDROCODONE/ACETAMINOPHEN 5/325MG TABLET PO PRN (20:45)
[2023-04-17 21:00] VITALS: PULSE 74; RESP 18; O2SAT 99
[2023-04-17] MEDS ORDERED: NALOXONE HCL 0.4MG/ML VIAL IV PRN (21:15)
[2023-04-17] MEDS: ATORVASTATIN CALCIUM 40MG TABLET PO SCH (21:51)
[2023-04-18] MEDS: GUAIFENESIN 200MG/10ML SUGAR FREE UDC PO PRN ×2 (04:48→09:13)
[2023-04-18] MEDS: BENZONATATE 100MG CAPSULE PO SCH ×3 (06:00→21:10)
[2023-04-18 07:31] LABS: CHLORIDE 94 mEq/L (98-107); INDEX HEMOLYSI 1 (1-3); INDEX ICTERIC 1 (1-4); INDEX LIPEMIC 1 (1-3); POTASSIUM 3.8 mEq/L (3.5-5.1); SODIUM 128 mEq/L (136-145)
[2023-04-18 07:42] LABS: CARBON DIOXIDE 27 mEq/L (21-32); CREATININE 0.5 mg/dL (0.6-1.3); GLUCOSE 90 mg/dL (70-105); HAPTOGLOBIN 79 mg/dL (30-200); LACTATE DEHYDROGENASE 219 IU/L (100-240); PHOSPHORUS 3.5 mg/dL (2.5-4.9); UREA NITROGEN BLOOD 8 mg/dL (7-21)
[2023-04-18 08:00] VITALS: BP 138/89; PULSE 81; RESP 17; TEMP 97.1
[2023-04-18] MEDS: BUDESONIDE 0.5MG/2ML NEB HHN SCH ×2 (08:06→21:35)
[2023-04-18 08:07] VITALS: PULSE 72; RESP 16; O2SAT 98
[2023-04-18] MEDS: PANTOT AC/MIN OIL/PET HY-PHL OINT (AQUAPHOR) TOP SCH (09:00)
[2023-04-18] MEDS: ERGOCALCIFEROL 50000UNITS CAPSULE PO SCH (09:11)
[2023-04-18] MEDS: FOLIC ACID 1MG TABLET PO SCH (09:11)
[2023-04-18] MEDS: THIAMINE HCL 100MG TABLET PO SCH (09:11)
[2023-04-18] MEDS: DEMECLOCYCLINE HCL 300MG TABLET PO SCH ×2 (09:11→18:05)
[2023-04-18] MEDS: ASPIRIN 81MG EC TABLET PO SCH (09:11)
[2023-04-18] MEDS: CYANOCOBALAMIN 1000MCG TABLET PO SCH (09:11)
[2023-04-18] MEDS: AMLODIPINE 10MG TABLET PO SCH (09:12)
[2023-04-18] MEDS: HYDRALAZINE HCL 25MG TABLET PO SCH ×2 (09:12→21:10)
[2023-04-18] MEDS: NICOTINE 7MG PATCH TD SCH (09:12)
[2023-04-18] MEDS: CARVEDILOL 12.5MG TABLET PO SCH (09:12)
[2023-04-18] MEDS: ENOXAPARIN 30MG/0.3ML SYR SUBCUT SCH (09:13)
[2023-04-18] MEDS: MAGNESIUM GLUCONATE 500MG TABLET PO SCH (09:16)
[2023-04-18] MEDS ORDERED: LACTULOSE 20G/30ML UDC PO SCH (11:30)
[2023-04-18 20:00] VITALS: BP 120/68; PULSE 78; RESP 18; TEMP 97
[2023-04-18] MEDS: ATORVASTATIN CALCIUM 40MG TABLET PO SCH (21:10)
[2023-04-18 21:36] VITALS: PULSE 75; RESP 18
[2023-04-19] MEDS: ZOLPIDEM TARTRATE 5MG TABLET PO PRN ×2 (00:25→22:10)
[2023-04-19 06:17] LABS: HEMATOCRIT. 31.2 % (36.0-48.0); MEAN CORPUSCULAR HEMOGLOBIN 34.8 pg (28.0-32.0); MEAN CORPUSCULAR HGB CONC 35.1 g/dL (31.0-37.0); MEAN PLATELET VOLUME 7.2 fl (7.4-10.4); PLATELET 421 x1000/uL (130-400); RED BLOOD CELL COUNT 3.15 mill/uL (4.2-5.4); RED CELL DISTRIBUTION WIDTH 14.5 % (11.6-14.6); WHITE BLOOD COUNT 7.1 x1000/uL (4.5-11.0)
[2023-04-19 06:25] LABS: CALCIUM 8.3 mg/dL (8.5-10.1); CHLORIDE 96 mEq/L (98-107); INDEX HEMOLYSI 1 (1-3); INDEX ICTERIC 1 (1-4); INDEX LIPEMIC 1 (1-3); POTASSIUM 3.9 mEq/L (3.5-5.1); SODIUM 128 mEq/L (136-145)
[2023-04-19 06:30] LABS: CARBON DIOXIDE 25 mEq/L (21-32); CREATININE 0.5 mg/dL (0.6-1.3); GLUCOSE 89 mg/dL (70-105); UREA NITROGEN BLOOD 10 mg/dL (7-21)
[2023-04-19 06:40] LABS: DIFFERENTIAL COMMENT 1
[2023-04-19] MEDS: BENZONATATE 100MG CAPSULE PO SCH ×3 (07:01→21:58)
[2023-04-19 08:00] VITALS: BP 124/66; PULSE 83; RESP 18; TEMP 97.5
[2023-04-19 08:49] LABS: MONOTEST NEGATIVE (NEGATIVE)
[2023-04-19] MEDS: PANTOT AC/MIN OIL/PET HY-PHL OINT (AQUAPHOR) TOP SCH (09:00)
[2023-04-19 09:25] LABS: ERYTHROCYTE SEDIMENTATION RATE 14 mm/hr (0-42)
[2023-04-19] MEDS: THIAMINE HCL 100MG TABLET PO SCH (09:28)
[2023-04-19] MEDS: MAGNESIUM GLUCONATE 500MG TABLET PO SCH (09:28)
[2023-04-19] MEDS: NICOTINE 7MG PATCH TD SCH (09:28)
[2023-04-19] MEDS: CYANOCOBALAMIN 1000MCG TABLET PO SCH (09:28)
[2023-04-19] MEDS: FOLIC ACID 1MG TABLET PO SCH (09:28)
[2023-04-19] MEDS: DEMECLOCYCLINE HCL 300MG TABLET PO SCH ×2 (09:28→18:09)
[2023-04-19] MEDS: ASPIRIN 81MG EC TABLET PO SCH (09:28)
[2023-04-19] MEDS: HYDRALAZINE HCL 25MG TABLET PO SCH ×2 (09:29→21:00)
[2023-04-19] MEDS: ENOXAPARIN 30MG/0.3ML SYR SUBCUT SCH (09:30)
[2023-04-19] MEDS: CARVEDILOL 12.5MG TABLET PO SCH (09:30)
[2023-04-19] MEDS: AMLODIPINE 10MG TABLET PO SCH (09:30)
[2023-04-19 17:15] LABS: PLATELET ESTIMATE INCREASED
[2023-04-19] MEDS: IPRATROPIUM/ALBUTEROL 0.5-3(2.5)MG/3ML NEB HHN PRN (17:33)
[2023-04-19 17:43] VITALS: PULSE 82; RESP 16; O2SAT 98
[2023-04-19 20:27] VITALS: BP 96/40; PULSE 79; RESP 17; TEMP 97.2
[2023-04-19 20:37] VITALS: PULSE 79; RESP 18
[2023-04-19] MEDS: BUDESONIDE 0.5MG/2ML NEB HHN SCH (20:37)
[2023-04-19] MEDS: ATORVASTATIN CALCIUM 40MG TABLET PO SCH (21:58)
[2023-04-20] MEDS: BENZONATATE 100MG CAPSULE PO SCH (06:04)
[2023-04-20] MEDS: BUDESONIDE 0.5MG/2ML NEB HHN SCH (07:58)
[2023-04-20] MEDS: IPRATROPIUM/ALBUTEROL 0.5-3(2.5)MG/3ML NEB HHN PRN (07:59)
[2023-04-20 08:00] VITALS: BP 94/40; PULSE 70; RESP 17; TEMP 97.5
[2023-04-20 08:15] VITALS: PULSE 76; RESP 18; O2SAT 98
[2023-04-20] MEDS: PANTOT AC/MIN OIL/PET HY-PHL OINT (AQUAPHOR) TOP SCH (09:00)
[2023-04-20] MEDS: AMLODIPINE 10MG TABLET PO SCH (09:00)
[2023-04-20] MEDS: CARVEDILOL 12.5MG TABLET PO SCH (09:00)
[2023-04-20] MEDS: HYDRALAZINE HCL 25MG TABLET PO SCH (09:00)
[2023-04-20 09:06] LABS: EBV VIRAL CAPSID AB IGM <36.0 U/mL (0.0-35.9)
[2023-04-20] MEDS: ASPIRIN 81MG EC TABLET PO SCH (09:36)
[2023-04-20] MEDS: FOLIC ACID 1MG TABLET PO SCH (09:36)
[2023-04-20] MEDS: NICOTINE 7MG PATCH TD SCH (09:37)
[2023-04-20] MEDS: CYANOCOBALAMIN 1000MCG TABLET PO SCH (09:37)
[2023-04-20] MEDS: THIAMINE HCL 100MG TABLET PO SCH (09:37)
[2023-04-20] MEDS: MAGNESIUM GLUCONATE 500MG TABLET PO SCH (09:37)
[2023-04-20] MEDS: ENOXAPARIN 30MG/0.3ML SYR SUBCUT SCH (09:42)
[2023-04-20] MEDS ORDERED: ALBU6.7H15 INH (10:30)
[2023-04-20] MEDS ORDERED: AMLO10TA80 PO (10:30)
[2023-04-20] MEDS ORDERED: BUDE6HFA INH (10:30)
[2023-04-20] MEDS ORDERED: LIP40 PO (10:30)
[2023-04-20] MEDS ORDERED: THIA100T72 PO (10:30)
[2023-04-20] MEDS ORDERED: COR12 PO (10:30)
[2023-04-20] MEDS ORDERED: HYDR-4134 PO (10:30)
[2023-04-20] MEDS ORDERED: HYDR-4001 PO (10:30)
[2023-04-20] MEDS ORDERED: ASPI-1406 PO (10:30)
[2023-04-20 11:18] VITALS: BP 108/52; PULSE 82; TEMP 97.5; O2SAT 99
[2023-04-20 11:21] VITALS: BP 108/52; PULSE 82; TEMP 97.5; O2SAT 99
== END 2023-04-20 12:46 | disposition home health service (06) | DRG 190 ==
PROVIDERS: ADMIT Physical Medicine & Rehabilitation Spinal Cord Injury Medicine; ATTEND Internal Medicine
DX: J44.1 Chronic obstructive pulmonary disease with (acute) exacerbation (principal); J96.01 Acute respiratory failure with hypoxia; E22.2 Syndrome of inappropriate secretion of antidiuretic hormone; A27.9 Leptospirosis, unspecified; G62.9 Polyneuropathy, unspecified; B35.1 Tinea unguium; D64.9 Anemia, unspecified; E55.9 Vitamin D deficiency, unspecified; E87.5 Hyperkalemia; F10.20 Alcohol dependence, uncomplicated; I10 Essential (primary) hypertension; L40.9 Psoriasis, unspecified; L60.3 Nail dystrophy; R26.9 Unspecified abnormalities of gait and mobility; B27.90 Infectious mononucleosis, unspecified without complication; E87.6 Hypokalemia; F17.210 Nicotine dependence, cigarettes, uncomplicated; F32.A Depression, unspecified; F41.9 Anxiety disorder, unspecified; I25.10 Atherosclerotic heart disease of native coronary artery without angina pectoris; K57.90 Diverticulosis of intestine, part unspecified, without perforation or abscess without bleeding; Z91.199 Patient's noncompliance with other medical treatment and regimen due to unspecified reason; Z91.81 History of falling; Z99.81 Dependence on supplemental oxygen; R53.81 Other malaise; M79.671 Pain in right foot; M79.672 Pain in left foot; M79.674 Pain in right toe(s); M79.675 Pain in left toe(s)
CPT/HCPCS: 36415; 80048; 80053; 80061; 81003; 82533; 83010; 83615; 83735; 83930; 83935; 84100; 84134; 84145; 84443; 85025; 85651; 86308; 86644; 86664; 86665; 86880; 93970; 94640; 97110; 97116; 97162; 97165; 97530; 97535; J1650; J3420; J7030; J7626